=== PATIENT | male | born 1960 | race African-American/Black ===

== ENCOUNTER 2018-07-10 03:39 | Inpatient (IN) ==
[2018-07-10 04:31] LABS: Baso % (Auto) 0.5 % (0.0-2.0); Eos % (Auto) 0.5 % (0.0-4.0); Hematocrit 26.6 % (39.0-51.0); Hemoglobin 8.8 gm/dL (13.0-17.0); Lymph % (Auto) 40.3 % (9.0-44.0); Mean Corpuscular Hemoglobin 28.5 pg (27.0-34.0); Mean Corpuscular Volume 86.3 fL (80.0-100.0); Mean Platelet Volume 8.7 fL (7.0-11.0); Mono # (Auto) 0.3 th/mm3 (0.0-0.9); Mono % (Auto) 5.4 % (0.0-8.0); Neut # (Auto) 2.7 th/mm3 (1.8-7.7); Neut % (Auto) 53.3 % (16.0-70.0); Platelet Count 125 th/mm3 (150-450); Red Blood Count 3.08 mil/mm3 (4.50-5.90); Red Cell Distribution Width 13.9 % (11.6-17.2); White Blood Count 5.1 th/mm3 (4.0-11.0)
--- NOTE | 2018-07-10 04:50 | XR ---
EXAM DATE: 07/10/2018 4:43 AM EST AGE/SEX: 58 years / Male INDICATIONS: Syncope. CLINICAL DATA: This is the patient's initial encounter. Patient reports that signs and symptoms have been present for 1 day and indicates a pain score of 0/10. MEDICAL/SURGICAL HISTORY: None. Appendectomy. COMPARISON: [facility] [place], 04/03/2016. . FINDINGS: A single AP view of the chest demonstrates the lungs to be symmetrically aerated without evidence of mass, infiltrate or effusion. The cardiomediastinal contours are unremarkable. Osseous structures a re intact. CONCLUSION: No acute cardiopulmonary disease demonstrated. Electronically signed by: Napoleon Jorge MD Board Certified Radiologist 07/10/2018 4:49 AM EST
[2018-07-10 04:59] LABS: Anion Gap 8 meq/L (5-15); Blood Urea Nitrogen 40 mg/dL (7-18); Carbon Dioxide 26.9 meq/L (21.0-32.0); Chloride 107 meq/L (98-107); Glomerular Filtration Rate 72 mL/min (>89); Glucose,Random 187 mg/dL (74-106); Potassium 4.1 meq/L (3.5-5.1); Sodium 142 meq/L (136-145)
[2018-07-10] MEDS ORDERED: Sodium Chlor 0.9% Inj 500 ML IV.SIG SCH (05:00)
--- NOTE | 2018-07-10 05:34 | CT ---
EXAM DATE: 07/10/2018 5:10 AM EST AGE/SEX: 58 years / Male INDICATIONS: Syncopal episode. CLINICAL DATA: This is the patient's initial encounter. Patient reports that signs and symptoms have been present for 1 day and indicates a pain score of 0/10. MEDICAL/SURGICAL HISTORY: None. Appendectomy. RADIATION DOSE: 56.35 CTDI (mGy) COMPARISON: No prior exams available for comparison. TECHNIQUE: CT of the head without contrast. Using automated exposure control and adjustment of the mA and/or kV according to patient size, radiation dose was kept as low as reasonably achievable to ob tain optimal diagnostic quality images. DICOM format image data is available electronically for revi ew and comparison. FINDINGS: Cerebrum: The ventricles are normal for age. No evidence of midline shift, mass lesion, hemorrhage or acute infarction. No extraaxial fluid collections are seen. Posterior Fossa: The cerebellum and brainstem are intact. The 4th ventricle is midline. The cerebe llopontine angle is unremarkable. Extracranial: The visualized portion of the orbits is intact. Skull: The calvaria is intact. No evidence of skull fracture. CONCLUSION: Negative noncontrast head CT. . Electronically signed by: Napoleon Jorge MD Board Certified Radiologist 07/10/2018 5:32 AM EST
--- NOTE | 2018-07-10 06:35 | ED ---
HPI General Chief Complaint: Syncope Stated Complaint: Medical Time Seen by Provider: 07/10/18 04:07 History of Present Illness HPI narrative: Patient is a 58-year-old male presents to the emergency department with an episode of syncope. Patient states that he had an episode of vomiting earlier in the evening and then had a syncopal episode which he does not recall however his says she heard a thud on the ground downstairs and went running and found him on the floor. He has no injury from the fall but does report coffee-ground emesis earlier. No history of drinking alcohol or illicit drug use. No liver disease or known coagulopathy. Patient has had no priors. Related Data Home Medications Medication Instructions Recorded Confirmed amoxicillin-pot clavulanate 1 tab PO Q12H 07/10/18 07/10/18 Allergies Allergy/AdvReac Type Severity Reaction Status Date / Time No Known Allergies Allergy Verified 07/10/18 09:34 Review of Systems ROS: all other systems reviewed are negative [facility] Social History Social History Substance History: No History of Abuse Second Hand Smoke Exposure: No Smoking Status: Never smoker How Often Do You Have a Drink Containing Alcohol: Never Recent Travel in [facility] within the Last 8 Weeks: No Recent Out of Country Travel within the Last 8 Weeks: No Immunization History Tetanus Immunization: >5 Years Exam Narrative Exam Narrative: GENERAL: 58-year-old male in no distress SKIN: Focused skin assessment warm/dry. HEAD: Atraumatic. Normocephalic. EYES: Pupils equal and round. No scleral icterus. No injection or drainage. CARDIOVASCULAR: Regular rate and rhythm. No murmur appreciated. RESPIRATORY: No accessory muscle use. Clear to auscultation. Breath sounds equal bilaterally. GASTROINTESTINAL: Abdomen soft, non-tender, nondistended. Hepatic and splenic margins not palpable. MUSCULOSKELETAL: No obvious deformities. No clubbing. No cyanosis. No edema. NEUROLOGICAL: Awake and alert. No obvious cranial nerve deficits. Motor grossly within normal limits. Normal speech. Course Initial Documented Vital Signs Temperature 98.0 F 07/10/18 03:44 Pulse Rate 85 07/10/18 03:44 Respiratory Rate 20 07/10/18 03:44 Blood Pressure 97/53 L 07/10/18 03:44 Pulse Oximetry 97 07/10/18 03:44 Last Documented Vital Signs Temperature 98.4 F 12/29/18 16:00 Pulse Rate 88 07/10/18 16:00 Respiratory Rate 17 07/10/18 16:00 Blood Pressure 107/68 07/10/18 16:00 Pulse Oximetry 100 07/10/18 15:40 Medical Decision Making MDM Narrative Medical decision making narrative: Patient was seen and evaluated in the emergency department. He had another episode of coffee-ground emesis. In the near syncope resulting after the event. His hemoglobin and hematocrit found to be low. He is typed and screened for potential blood transfusion and admitted for further evaluation and treatment. Medical Screen Exam Complete: Yes Emergency Medical Condition: Yes Lab Data Result diagrams: 07/10/18 17:18 07/10/18 04:23 Lab Results 07/10/18 07/10/18 07/10/18 Range/Units 04:23 04:23 04:23 WBC 5.1 (4.0-11.0) th/mm3 RBC 3.08 L (4.50-5.90) mil/mm3 Hgb 8.8 L (13.0-17.0) gm/dL Hct 26.6 L (39.0-51.0) % MCV 86.3 (80.0-100.0) fL MCH 28.5 (27.0-34.0) pg MCHC 33.0 (32.0-36.0) % RDW 13.9 (11.6-17.2) % Plt Count 125 L (150-450) th/mm3 MPV 8.7 (7.0-11.0) fL Neut % (Auto) 53.3 (16.0-70.0) % Lymph % (Auto) 40.3 (9.0-44.0) % [place] % (Auto) 5.4 (0.0-8.0) % Eos % (Auto) 0.5 (0.0-4.0) % Baso % (Auto) 0.5 (0.0-2.0) % Neut # (Auto) 2.7 (1.8-7.7) th/mm3 Lymph # (Auto) 2.0 (1.0-4.8) th/mm3 [place] # (Auto) 0.3 (0.0-0.9) th/mm3 Eos # (Auto) 0.0 (0.0-0.4) th/mm3 Baso # (Auto) 0.0 (0.0-0.2) th/mm3 WBC Differential . Differential Comment Auto diff final PT (9.8-11.6) sec INR Ratio APTT (23.4-31.7) sec D-Dimer Quant (PE/DVT) 0.19 (0.00-0.50) mg/L FEU Sodium 142 (136-145) meq/L Potassium 4.1 (3.5-5.1) meq/L Chloride 107 (98-107) meq/L Carbon Dioxide 26.9 (21.0-32.0) meq/L Anion Gap 8 (5-15) meq/L BUN 40 H (7-18) mg/dL Creatinine 1.25 (0.60-1.30) mg/dL Estimated GFR 72 L (>89) mL/min POC Glucose (68-110) mg/dl Random Glucose 187 H (74-106) mg/dL Lactic Acid (0.4-2.0) mmol/L Calcium 8.0 L (8.5-10.1) mg/dL Phosphorus (2.5-4.9) mg/dL Magnesium (1.5-2.5) mg/dL Total Creatine Kinase (39-308) U/L CK-MB (CK-2) (0.5-3.6) ng/mL CK-MB (CK-2) % (0.0-4.0) % Troponin I Less than 0.02 L (0.02-0.05) ng/mL Amylase (25-115) U/L Lipase (73-393) U/L Nasal Screen MRSA (PCR) (Negative) Blood Type Blood Type Recheck Antibody Screen 07/10/18 07/10/18 07/10/18 Range/Units 04:46 09:44 09:50 WBC (4.0-11.0) th/mm3 RBC (4.50-5.90) mil/mm3 Hgb (13.0-17.0) gm/dL Hct (39.0-51.0) % MCV (80.0-100.0) fL MCH (27.0-34.0) pg MCHC (32.0-36.0) % RDW (11.6-17.2) % Plt Count (150-450) th/mm3 MPV (7.0-11.0) fL Neut % (Auto) (16.0-70.0) % Lymph % (Auto) (9.0-44.0) % [place] % (Auto) (0.0-8.0) % Eos % (Auto) (0.0-4.0) % Baso % (Auto) (0.0-2.0) % Neut # (Auto) (1.8-7.7) th/mm3 Lymph # (Auto) (1.0-4.8) th/mm3 [place] # (Auto) (0.0-0.9) th/mm3 Eos # (Auto) (0.0-0.4) th/mm3 Baso # (Auto) (0.0-0.2) th/mm3 WBC Differential Differential Comment PT 12.8 H (9.8-11.6) sec INR 1.3 Ratio APTT 22.2 L (23.4-31.7) sec D-Dimer Quant (PE/DVT) (0.00-0.50) mg/L FEU Sodium (136-145) meq/L Potassium (3.5-5.1) meq/L Chloride (98-107) meq/L Carbon Dioxide (21.0-32.0) meq/L Anion Gap (5-15) meq/L BUN (7-18) mg/dL Creatinine (0.60-1.30) mg/dL Estimated GFR (>89) mL/min POC Glucose 112 H (68-110) mg/dl Random Glucose (74-106) mg/dL Lactic Acid (0.4-2.0) mmol/L Calcium (8.5-10.1) mg/dL Phosphorus (2.5-4.9) mg/dL Magnesium (1.5-2.5) mg/dL Total Creatine Kinase (39-308) U/L CK-MB (CK-2) (0.5-3.6) ng/mL CK-MB (CK-2) % (0.0-4.0) % Troponin I (0.02-0.05) ng/mL Amylase (25-115) U/L Lipase (73-393) U/L Nasal Screen MRSA (PCR) (Negative) Blood Type B Positive Blood Type Recheck Required Antibody Screen Negative 07/10/18 07/10/18 07/10/18 Range/Units 11:00 12:39 12:39 WBC (4.0-11.0) th/mm3 RBC (4.50-5.90) mil/mm3 Hgb 9.4 L (13.0-17.0) gm/dL Hct 27.4 L (39.0-51.0) % MCV (80.0-100.0) fL MCH (27.0-34.0) pg MCHC (32.0-36.0) % RDW (11.6-17.2) % Plt Count (150-450) th/mm3 MPV (7.0-11.0) fL Neut % (Auto) (16.0-70.0) % Lymph % (Auto) (9.0-44.0) % [place] % (Auto) (0.0-8.0) % Eos % (Auto) (0.0-4.0) % Baso % (Auto) (0.0-2.0) % Neut # (Auto) (1.8-7.7) th/mm3 Lymph # (Auto) (1.0-4.8) th/mm3 [place] # (Auto) (0.0-0.9) th/mm3 Eos # (Auto) (0.0-0.4) th/mm3 Baso # (Auto) (0.0-0.2) th/mm3 WBC Differential Differential Comment PT (9.8-11.6) sec INR Ratio APTT (23.4-31.7) sec D-Dimer Quant (PE/DVT) (0.00-0.50) mg/L FEU Sodium (136-145) meq/L Potassium (3.5-5.1) meq/L Chloride (98-107) meq/L Carbon Dioxide (21.0-32.0) meq/L Anion Gap (5-15) meq/L BUN (7-18) mg/dL Creatinine (0.60-1.30) mg/dL Estimated GFR (>89) mL/min POC Glucose (68-110) mg/dl Random Glucose (74-106) mg/dL Lactic Acid 1.7 (0.4-2.0) mmol/L Calcium (8.5-10.1) mg/dL Phosphorus (2.5-4.9) mg/dL Magnesium (1.5-2.5) mg/dL Total Creatine Kinase (39-308) U/L CK-MB (CK-2) (0.5-3.6) ng/mL CK-MB (CK-2) % (0.0-4.0) % Troponin I (0.02-0.05) ng/mL Amylase (25-115) U/L Lipase (73-393) U/L Nasal Screen MRSA (PCR) Not detected (Negative) Blood Type Blood Type Recheck Antibody Screen 07/10/18 07/10/18 07/10/18 Range/Units 12:39 12:39 17:18 WBC (4.0-11.0) th/mm3 RBC (4.50-5.90) mil/mm3 Hgb 9.1 L (13.0-17.0) gm/dL Hct 26.2 L (39.0-51.0) % MCV (80.0-100.0) fL MCH (27.0-34.0) pg MCHC (32.0-36.0) % RDW (11.6-17.2) % Plt Count (150-450) th/mm3 MPV (7.0-11.0) fL Neut % (Auto) (16.0-70.0) % Lymph % (Auto) (9.0-44.0) % [place] % (Auto) (0.0-8.0) % Eos % (Auto) (0.0-4.0) % Baso % (Auto) (0.0-2.0) % Neut # (Auto) (1.8-7.7) th/mm3 Lymph # (Auto) (1.0-4.8) th/mm3 [place] # (Auto) (0.0-0.9) th/mm3 Eos # (Auto) (0.0-0.4) th/mm3 Baso # (Auto) (0.0-0.2) th/mm3 WBC Differential Differential Comment PT (9.8-11.6) sec INR Ratio APTT (23.4-31.7) sec D-Dimer Quant (PE/DVT) (0.00-0.50) mg/L FEU Sodium (136-145) meq/L Potassium (3.5-5.1) meq/L Chloride (98-107) meq/L Carbon Dioxide (21.0-32.0) meq/L Anion Gap (5-15) meq/L BUN (7-18) mg/dL Creatinine (0.60-1.30) mg/dL Estimated GFR (>89) mL/min POC Glucose (68-110) mg/dl Random Glucose (74-106) mg/dL Lactic Acid (0.4-2.0) mmol/L Calcium (8.5-10.1) mg/dL Phosphorus 2.6 (2.5-4.9) mg/dL Magnesium 1.8 (1.5-2.5) mg/dL Total Creatine Kinase 363 H (39-308) U/L CK-MB (CK-2) 4.8 H (0.5-3.6) ng/mL CK-MB (CK-2) % 1.3 (0.0-4.0) % Troponin I (0.02-0.05) ng/mL Amylase 59 (25-115) U/L Lipase 75 (73-393) U/L Nasal Screen MRSA (PCR) (Negative) Blood Type Blood Type Recheck Antibody Screen 07/10/18 Range/Units 17:49 WBC (4.0-11.0) th/mm3 RBC (4.50-5.90) mil/mm3 Hgb (13.0-17.0) gm/dL Hct (39.0-51.0) % MCV (80.0-100.0) fL MCH (27.0-34.0) pg MCHC (32.0-36.0) % RDW (11.6-17.2) % Plt Count (150-450) th/mm3 MPV (7.0-11.0) fL Neut % (Auto) (16.0-70.0) % Lymph % (Auto) (9.0-44.0) % [place] % (Auto) (0.0-8.0) % Eos % (Auto) (0.0-4.0) % Baso % (Auto) (0.0-2.0) % Neut # (Auto) (1.8-7.7) th/mm3 Lymph # (Auto) (1.0-4.8) th/mm3 [place] # (Auto) (0.0-0.9) th/mm3 Eos # (Auto) (0.0-0.4) th/mm3 Baso # (Auto) (0.0-0.2) th/mm3 WBC Differential Differential Comment PT (9.8-11.6) sec INR Ratio APTT (23.4-31.7) sec D-Dimer Quant (PE/DVT) (0.00-0.50) mg/L FEU Sodium (136-145) meq/L Potassium (3.5-5.1) meq/L Chloride (98-107) meq/L Carbon Dioxide (21.0-32.0) meq/L Anion Gap (5-15) meq/L BUN (7-18) mg/dL Creatinine (0.60-1.30) mg/dL Estimated GFR (>89) mL/min POC Glucose 84 (68-110) mg/dl Random Glucose (74-106) mg/dL Lactic Acid (0.4-2.0) mmol/L Calcium (8.5-10.1) mg/dL Phosphorus (2.5-4.9) mg/dL Magnesium (1.5-2.5) mg/dL Total Creatine Kinase (39-308) U/L CK-MB (CK-2) (0.5-3.6) ng/mL CK-MB (CK-2) % (0.0-4.0) % Troponin I (0.02-0.05) ng/mL Amylase (25-115) U/L Lipase (73-393) U/L Nasal Screen MRSA (PCR) (Negative) Blood Type Blood Type Recheck Antibody Screen Imaging Data Radiologist's impression: Chest X-Ray 07/10/18 04:19 CONCLUSION: No acute cardiopulmonary disease demonstrated. Head CT 07/10/18 04:19 CONCLUSION: Negative noncontrast head CT. . Abdomen X-Ray 07/10/18 09:13 CONCLUSION: Nonspecific gas pattern No evidence of pathologic distention, free air or mass effect. Discharge Plan Discharge Disposition Patient Disposition: ED Admit(ED Internal Use Only) Discharge Condition Condition: Stable Discharge Order Discharge Orders: ED Use Only Admit Order (Routine); Ordered 07/10/18 Ordered By: Lizbeth Stafford Discharge Details Diagnosis: Acute upper GI bleed Physicians Team ED Provider: Lizbeth Stafford Primary Care Provider: [facility] Attending Provider: Sharad Pedroza Other Providers: Juan Goncalves ; Dino Watkins Status ED Status: Left Department Discharge Information Discharge Date/Time: 07/10/18 10:06
[2018-07-10] MEDS ORDERED: Acetaminophen 325 MG Tablet PO PRN (09:06)
[2018-07-10] MEDS ORDERED: Potassium Phosphate Inj 30 MMOL in Sodium Chlor 0.9% Inj 250 ML IV.SIG PRN (09:22)
[2018-07-10] MEDS ORDERED: Potassium Chlor 40 mEq Premix 40 MEQ/100 ML PIGGYBACK IV.SIG PRN ×2 (09:22)
[2018-07-10] MEDS ORDERED: Potassium Chlor 20 mEq Premix 20 MEQ/100 ML PIGGYBACK IV.SIG PRN ×2 (09:22)
[2018-07-10] MEDS ORDERED: Potassium Chloride 25 MEQ Effervescent Tablet PO PRN (09:22)
[2018-07-10] MEDS ORDERED: Sodium Phosphate Inj 30 MMOL in Sodium Chlor 0.9% Inj 250 ML IV.SIG PRN (09:22)
[2018-07-10] MEDS ORDERED: Magnesium Oxide 400 MG Tablet PO PRN (09:22)
[2018-07-10] MEDS ORDERED: Potassium Phosphate 500 MG Soluble Tablet PO PRN ×2 (09:22)
[2018-07-10] MEDS ORDERED: Magnesium Sulfate Inj 4 GM in Sodium Chlor 0.9% Inj 92 ML IV.SIG PRN (09:22)
[2018-07-10] MEDS ORDERED: Magnesium Sulfate Inj 2 GM in Sodium Chlor 0.9% Inj 96 ML IV.SIG PRN (09:22)
--- NOTE | 2018-07-10 09:22 | P.HPCC ---
History of Present Illness Service: Critical care medicine Primary Care Physician: Physician 's [facility] Chief Complaint: Nausea/vomiting with coffee-ground emesis History of Present Illness: This is a 58-year-old AA male. Admission 07/10/2018. Past medical history includes past ruptured appendix. He denies any aspirin use, NSAID use, oral steroid use or use of medication such as Celebrex or Vioxx patient presents to [facility] with a 3-4-day history of generalized abdominal discomfort. This morning, patient acute onset of nausea and vomiting with multiple episodes of coffee-ground emesis with some bright red blood in some episodes of hematochezia per patient and . Patient has syncopal event and was transported to [facility]. CT brain negative. Heme globin 8.8. Coags currently pending. Given his elevated 40. Patient started on pantoprazole drip and gastroneurology consult for possible intervention. Initial systolic blood pressure was in the 80s systolic currently 110. He received 1 L normal saline bolus. Multiple laboratory still pending we are estimate the patient. Patient is currently warm extremities and conversing normally. - Diagnosis (1) Normocytic anemia due to blood loss (2) Acute kidney injury (3) Acute upper GI bleed Inpatient Certification: I certify that the inpatient services were ordered in accordance with Medicare regulations governing the order. This includes certification that hospital inpatient services are reasonable and necessary and in the case of services not specified as inpatient-only under 42 CFR 419.22(n), that they are appropriately provided as inpatient services in accordance to with the 2-midnight benchmark under 43 CFR 412.3(e) Estimated Total Length of Stay (Days): 5 Plans for Post Hospital Care: Not yet determined Review of Systems Constitutional: Denies anorexia, Denies body ache(s), Denies chills Eyes: Denies blind spots, Denies blurry vision, Denies bulging eyes Ears, Nose, Mouth, and Throat: Denies abnormal hearing, Denies bleeding gums, Denies bad breath Cardiovascular: Denies chest pain, Denies shortness of breath Respiratory: Denies cough, Denies shortness of breath Gastrointestinal: Reports bloating, Reports bright, red blood in stools, Reports nausea, Reports vomiting, Reports vomiting blood, Denies difficulty swallowing, Denies incontinent of stools Genitourinary: Denies urinary hesitancy, Denies urinary incontinence Musculoskeletal: Denies abnormal walking, Denies back pain Skin/Breast: Denies acne, Denies wounds Neurologic: Denies abnormal hearing, Denies abnormal movements, Denies lack of coordination, Denies localized weakness Psychiatric: Denies anxiety, Denies confusion, Denies depression Endocrine: Denies cold intolerance, Denies excessive sweating Hematologic/Lymphatic: Denies easy bleeding, Denies easy bruising Allergic/Immunologic: Denies GI upset with certain foods PMFSH - History History Provided By: Financial Administrator / EMT - Medical History Medical History: Medical History (Last Updated 07/10/18 @ 09:17 by Sharad Pedroza MD) No pertinent past medical history - Surgical History Surgical History: Surgical History (Last Updated 07/10/18 @ 03:53 by Maico Mcallister) Hx of appendectomy - Family History Family History: Family History (Last Updated 07/10/18 @ 09:17 by Sharad Pedroza MD) Other Family history of diabetes mellitus in mother - Social History I have reviewed the patient's Social History: Yes - Tobacco History Second Hand Smoke Exposure: No Tobacco Use In Past 30 Days: No Smoking Status: Never smoker - Alcohol History How Often Do You Have a Drink Containing Alcohol: Never - Substance Use History Substance History: No History of Abuse - Travel History Recent Travel in the [place] Within the Last 8 Weeks: No Recent Travel Out of the Country Within the Last 8 Weeks: No - Immunization History Tetanus Immunization: >5 Years Medications and Allergies Active Medications: Active Medications Acetaminophen (Tylenol) 650 mg PO Q6H PRN PRN Reason: PAIN 1-10 AND/OR FEVER >101F Albuterol (Albuterol Neb (Radha)) 2.5 mg NEB Q2HR NEB PRN PRN Reason: SHORTNESS OF BREATH/WHEEZING Chlorhexidine Gluconate (Chlorhexidine 2% Cloth) 3 pack TOPICAL DAILY@0400 RADHA Stop: 07/16/18 03:59 Chlorhexidine Gluconate (Chlorhexidine 2% Cloth) 3 pack TOPICAL DAILY@0400 PRN PRN Reason: Extra cloth needed Stop: 07/16/18 03:59 Sodium Chloride (Ns Inj) 1,000 mls @ 84 mls/hr IV.CONT .[id number] RADHA Pantoprazole Sodium 80 mg/ (Sodium Chloride) 35 mls @ 420 mls/hr IV.SIG BOLUS ONE Stop: 07/10/18 09:13 Pantoprazole Sodium 80 mg/ (Sodium Chloride) 100 mls @ 10 mls/hr IV.CONT CONT RADHA Ondansetron HCl (Zofran Inj) 4 mg IV.PUSH Q6H PRN PRN Reason: NAUSEA OR VOMITING Sodium Chloride (Ns Flush) 2 ml IV.FLUSH BID RADHA Sodium Chloride (Ns Flush) 2 ml IV.FLUSH PRN PRN PRN Reason: FLUSH AFTER USING IV ACCESS Allergies Allergy/AdvReac Type Severity Reaction Status Date / Time No Known Allergies Allergy Cough Uncoded 07/10/18 03:58 Home Medications Medication Instructions Recorded Confirmed Type amoxicillin-pot clavulanate 1 tab PO Q12H 07/10/18 07/10/18 History Results - Labs CBC & Chem 7: 07/10/18 04:23 07/10/18 04:23 Labs: Short CBC 07/10/18 Range/Units 04:23 WBC 5.1 (4.0-11.0) th/mm3 Hgb 8.8 L (13.0-17.0) gm/dL Hct 26.6 L (39.0-51.0) % Plt Count 125 L (150-450) th/mm3 BMP 07/10/18 04:23 Sodium 142 Potassium 4.1 Chloride 107 Carbon Dioxide 26.9 BUN 40 H Creatinine 1.25 Calcium 8.0 L Cardiac Enzymes 07/10/18 Range/Units 04:23 Troponin I Less than 0.02 L (0.02-0.05) ng/mL - Imaging Impressions Chest X-Ray 07/10/18 04:19 CONCLUSION: No acute cardiopulmonary disease demonstrated. Head CT 07/10/18 04:19 CONCLUSION: Negative noncontrast head CT. . Exam Vital signs: Vital Signs 07/10/18 03:44 07/10/18 04:46 07/10/18 07:00 Temperature 98.0 F Pulse Rate 85 83 76 Respiratory Rate 20 17 Blood Pressure 97/53 L 85/54 L Pulse Oximetry 97 83 L 07/10/18 07:10 07/10/18 07:18 Temperature 98.2 F Pulse Rate 77 Respiratory Rate 15 Blood Pressure 103/55 L Pulse Oximetry 100 100 Intake & Output 07/09/18 07/10/18 07/10/18 18:59 06:59 18:59 Intake Total 500 / 500 Balance 500 / 500 Weight 84.368 kg Intake: IV 500 / 500 NS Inj 500 ML @ 1000 mls/hr IV. 500 / 500 SIG BOLUS RADHA Rx#:[id number] - Constitutional no acute distress - Routine HEENT Exam Head: Present: normocephalic, atraumatic Eye: Present: EOMI, PERRL ENT: Present: mucous membranes moist - Routine Neck Exam Present: supple, full ROM. Absent: JVD - Routine Chest/Breast/Axilla Exam Chest wall: Absent: tenderness Breast: Absent: tenderness Axillae: Absent: lymphadenopathy - Routine Respiratory Exam Present: CTA bilaterally. Absent: accessory muscle use - Routine Cardiovascular Exam Present: RRR, S1, S2. Absent: murmur - Routine Abdominal Exam Present: normoactive bowel sounds, tenderness, distended. Absent: guarding, rigid, mass - Routine Extremities Exam Absent: cyanosis, clubbing, edema - Routine Skin Exam Present: intact, dry, warm. Absent: cyanosis - Routine Neurological Exam Present: alert, oriented X3, CN II-XII intact. Absent: sensory deficit, motor deficit - Routine Psychiatric Exam Present: normal affect Septic Shock Reassessment Septic shock perfusion: reassessment completed Caprini VTE Risk Assessment Caprini VTE Risk Assessment: Moderate/High Risk (score >= 2) VTE Pharmacological Exception Reason: Hemorrhage Caprini Risk Assessment Model: Point Value = 1 Point Value = 2 Point Value = 3 Point Value = 5 Age 41-60 Minor surgery BMI > 25 kg/m2 Swollen legs Varicose veins or History of unexplained or recurrent spontaneous Oral contraceptives or hormone replacement Sepsis (< 1 month) Serious lung disease, including pneumonia (< 1 month) Abnormal pulmonary function Acute myocardial infarction Congestive heart failure (< 1 month) History of inflammatory bowel disease Medical patient at bed rest Age 61-74 Arthroscopic surgery Major open surgery (> 45 min) Laparoscopic surgery (> 45 min) Malignancy Confined to bed (> 72 hours) Immobilizing plaster cast Central venous access Age >= 75 History of VTE Family history of VTE Factor V Leiden Prothrombin 26808H Lupus anticoagulant Anticardiolipin antibodies Elevated serum homocysteine Heparin-induced thrombocytopenia Other congenital or acquired thrombophilia Stroke (< 1 month) Elective arthroplasty Hip, pelvis, or leg fracture Acute spinal cord injury (< 1 month) Prophylaxis Regimen: Total Risk Factor Score Risk Level Prophylaxis Regimen 0-1 Low Early ambulation 2 Moderate Order ONE of the following: *Sequential Compression Device (SCD) *Heparin 5000 units SQ BID 3-4 Higher Order ONE of the following medications: *Heparin 5000 units SQ TID *Enoxaparin/Lovenox 40 mg SQ daily (WT < 150 kg, CrCl > 30 mL/min) *Enoxaparin/Lovenox 30 mg SQ daily (WT < 150 kg, CrCl > 10-29 mL/min) *Enoxaparin/Lovenox 30 mg SQ BID (WT < 150 kg, CrCl > 30 mL/min) AND/OR *Sequential Compression Device (SCD) 5 or more Highest Order ONE of the following medications: *Heparin 5000 units SQ TID (Preferred with Epidurals) *Enoxaparin/Lovenox 40 mg SQ daily (WT < 150 kg, CrCl > 30 mL/min) *Enoxaparin/Lovenox 30 mg SQ daily (WT < 150 kg, CrCl > 10-29 mL/min) *Enoxaparin/Lovenox 30 mg SQ BID (WT < 150 kg, CrCl > 30 mL/min) AND *Sequential Compression Device (SCD) Assessment and Plan - Problem List (1) Normocytic anemia due to blood loss Code(s): D50.0 - Iron deficiency anemia secondary to blood loss (chronic) Status: Acute (2) Acute kidney injury Code(s): N17.9 - Acute kidney failure, unspecified Status: Acute (3) Acute upper GI bleed Code(s): K92.2 - Gastrointestinal hemorrhage, unspecified Status: Acute - Assessment and Plan Plan: Neuro/Psych: Acetaminophen 650 p.o. every 6 hours as needed pain/fever 1 through 10 CV: Acute hypotension secondary to acute GI bleed called Status post 1 L normal saline bolus in ED. Currently normal saline at 84 cc an hour. Check lactate Resp: Nasal cannula to maintain saturations greater than equal 92% Incentive spirometry while awake As needed albuterol aerosols every 2 hours as needed dyspnea GI: Likely upper GI bleed Currently on pantoprazole 80 mg IV was followed by 8 mg an hour GI consultation Serial hemoglobins every 6 hours with lactate pending Liver function tests, amylase, lipase, coags and abdominal x-ray currently pending N.p.o. status. : No indication for Turner catheter Endo: Hyperglycemia/acute Sliding scale insulin with Accu-Cheks every 6 hours to maintain euglycemia Renal: Acute kidney injury Creatinine currently 1.25. Monitor urine output Accurate I's and O's Recheck BMP in a.m. 30. Likely secondary to volume/hypoperfusion Heme: Normocytic anemia/acute blood loss Serial hemoglobins every 6 hours. Type and screen coags ID: Monitor for signs and symptomatology of infection FEN: Replace electrolytes as clinically indicated per ICU electrolyte protocol Currently on normal saline at 40 cc an hour MSK: Physical therapy to evaluate and treat Access -Utilize peripheral IV. Central line if indicated Prophylaxis -GI -pantoprazole drip -DVT -SCD/pharmacological prophylaxis contraindicated with active hemorrhage Level 2 admission
[2018-07-10] MEDS ORDERED: Dextrose 50% in Water 50 ML Vial IV.PUSH PRN (09:23)
[2018-07-10] MEDS ORDERED: Pantoprazole Inj 80 MG in Sodium Chlor 0.9% Inj 35 ML IV.SIG ONE (09:30)
[2018-07-10] MEDS: Sod Chloride 0.9% Inj 1,000 ML IV.CONT SCH ×2 (09:40→20:23)
--- NOTE | 2018-07-10 09:57 | XR ---
EXAM DATE: 07/10/2018 9:32 AM EST AGE/SEX: 58 years / Male INDICATIONS: Nausea and vomiting. Possible GI bleed. CLINICAL DATA: This is the patient's initial encounter. Patient reports that signs and symptoms have been present for 1 day and indicates a pain score of 0/10. MEDICAL/SURGICAL HISTORY: None. Appendectomy. COMPARISON: No prior exams available for comparison. FINDINGS: Nonspecific gas pattern is noted. There is air throughout the GI tract without evidence of pathologic distention. There is no evidence of free air or mass effect. Osseous structures are intact. CONCLUSION: Nonspecific gas pattern No evidence of pathologic distention, free air or mass effect. Electronically signed by: Mustapha Berg MD Board Certified Radiologist 07/10/2018 9:55 AM EST
[2018-07-10 10:51] LABS: Activated Partial Thrombo Time 22.2 sec (23.4-31.7); INR 1.3 Ratio; Prothrombin Time 12.8 sec (9.8-11.6)
[2018-07-10] MEDS: Pantoprazole Inj 80 MG in Sodium Chlor 0.9% Inj 100 ML IV.CONT SCH ×2 (11:36→22:35)
--- NOTE | 2018-07-10 12:06 | P.CONGI ---
History of Present Illness Consult date: 07/10/18 Consult reason: Coffee-ground emesis, upper GI bleed Chief complaint: Upper Gi bleed History of Present Illness: This is a well-nourished 58-year-old male who came into the hospital on 2017 with onset of abdominal pain approximately 3 days ago with epigastric tenderness to light touch. Approximately 02 30 this a.m. patient started having coffee-ground emesis at home uncontrolled and after coming to the hospital melena stools. Patient did note a change in the color of his stools approximately 3 days ago to dark and sticky. Patient also notes sore throat and treatment with amoxicillin approximately 2 weeks ago. Patient does have family history of colon cancer younger brother and patient has history of polyps. Last colonoscopy with Dr. Draek was July 2017. Patient states EGD many years ago no known history of gastric or esophageal ulcers. Patient denies any diarrhea or constipation, no dyspepsia or dysphasia, no recent NSAID use, takes no anticoagulation, no alcohol or drug use. Patient does note history of ruptured appendix in the early . Labs reviewed which show current hemoglobin 8.8, WBC count 5.1, platelet count 125, d-dimer 0.19, mild elevation in BUN 40 and normal creatinine. Patient does note some decreased appetite over the past 3 days. Gastroenterology was consulted to assist in his care. Patient is being monitored in the intensive care setting, borderline hypotension in the emergency room appears to be more stable. Last also notes some altered mental status after vomiting at home but recovered in 2-3 minutes. <Heidi Ortiz - Last Filed: 07/10/18 12:06> Review of Systems All other systems reviewed negative except as stated in HPI <Heidi Ortiz - Last Filed: 07/10/18 12:06> PMFSH - History History Provided By: Patient - Medical History Medical History: Medical History (Last Reviewed 07/10/18 @ 09:28 by Lou Borwn) No pertinent past medical history - Surgical History Surgical History: Surgical History (Last Reviewed 07/10/18 @ 09:28 by Lou Brown) Hx of appendectomy - Family History Family History: Family History (Last Reviewed 07/10/18 @ 09:28 by Lou Brown) Other Family history of diabetes mellitus in mother - Tobacco History Second Hand Smoke Exposure: No Tobacco Use In Past 30 Days: No Smoking Status: Never smoker - Alcohol History How Often Do You Have a Drink Containing Alcohol: Never - Substance Use History Substance History: No History of Abuse - Travel History Recent Travel in the [place] Within the Last 8 Weeks: No Recent Travel Out of the Country Within the Last 8 Weeks: No - Immunization History Tetanus Immunization: <5 Years Hx Influenza Vaccine This Season: Yes <Heidi Ortiz - Last Filed: 07/10/18 12:06> - Medical History Medical History: Medical History (Last Reviewed 07/10/18 @ 09:28 by Lou Brown) No pertinent past medical history - Surgical History Surgical History: Surgical History (Last Reviewed 07/10/18 @ 09:28 by Lou Brown) Hx of appendectomy - Family History Family History: Family History (Last Reviewed 07/10/18 @ 09:28 by Lou Brown) Other Family history of diabetes mellitus in mother <Juan Goncalves - Last Filed: 07/10/18 13:23> Medications and Allergies Active Medications: Active Medications Acetaminophen (Tylenol) 650 mg PO Q6H PRN PRN Reason: PAIN 1-10 AND/OR FEVER >101F Albuterol (Albuterol Neb (Prn)) 2.5 mg NEB Q2HR NEB PRN PRN Reason: SHORTNESS OF BREATH/WHEEZING Chlorhexidine Gluconate (Chlorhexidine 2% Cloth) 3 pack TOPICAL DAILY@0400 RADHA Stop: 07/16/18 03:59 Chlorhexidine Gluconate (Chlorhexidine 2% Cloth) 3 pack TOPICAL DAILY@0400 PRN PRN Reason: Extra cloth needed Stop: 07/16/18 03:59 Dextrose (D50w Vial) 50 ml IV.PUSH UNSCH PRN PRN Reason: PER HYPOGLYCEMIA PROTOCOL Glucagon (Glucagon Inj) 1 mg OTHER PRN PRN PRN Reason: for Hypoglycemia Protocol Sodium Chloride (Ns Inj) 1,000 mls @ 84 mls/hr IV.CONT .[id number] [facility] Last Admin: 07/10/18 09:40 Dose: 84 mls/hr Pantoprazole Sodium 80 mg/ (Sodium Chloride) 100 mls @ 10 mls/hr IV.CONT CONT [facility] Last Admin: 07/10/18 11:36 Dose: 10 mls/hr Magnesium Sulfate 4 gm/ Sodium (Chloride) 100 mls @ 50 mls/hr IV.SIG UNSCH PRN PRN Reason: For Magnesium 0.9 - 1.1 mg/dL Magnesium Sulfate 2 gm/ Sodium (Chloride) 100 mls @ 50 mls/hr IV.SIG UNSCH PRN PRN Reason: For Magnesium 1.2 - 1.6 mg/dL Potassium Chloride (Kcl 40 Meq Premix Inj) 40 meq in 100 mls @ 50 mls/hr IV.SIG Q2H PRN PRN Reason: For Potassium 2.8 - 3.2 mEq/L Potassium Chloride (Kcl 20 Meq Premix Inj) 20 meq in 100 mls @ 50 mls/hr IV.SIG Q2H PRN PRN Reason: For Potassium 3.3 - 3.5 mEq/L Potassium Chloride (Kcl 40 Meq Premix Inj) 40 meq in 100 mls @ 25 mls/hr IV.SIG UNSCH PRN PRN Reason: For Potassium 3.3 - 3.5 mEq/L Potassium Chloride (Kcl 20 Meq Premix Inj) 20 meq in 100 mls @ 50 mls/hr IV.SIG Q2H PRN PRN Reason: For Potassium 2.8 - 3.2 mEq/L Potassium Phosphate 30 mmol/ (Sodium Chloride) 260 mls @ 42 mls/hr IV.SIG UNSCH PRN PRN Reason: SEE LABEL COMMENTS Sodium Phosphate 30 mmol/ (Sodium Chloride) 260 mls @ 42 mls/hr IV.SIG UNSCH PRN PRN Reason: For Phosphorus < 2.5 mg/dL Insulin Aspart (Novolog Insulin Correctional Sugar Inj) 0 unit SQ Q6HR RADHA; Protocol Magnesium Oxide (Mag-Ox) 800 mg PO UNSCH PRN PRN Reason: For Magnesium 1.2 - 1.6 mg/dL Ondansetron HCl (Zofran Inj) 4 mg IV.PUSH Q6H PRN PRN Reason: NAUSEA OR VOMITING Potassium Bicarb/Potassium Chloride (K-Lyte Cl Eff) 50 meq PO UNSCH PRN PRN Reason: For Potassium 3.3 - 3.5 mEq/L Potassium Phosphate (K-Phos Original) 2,000 mg PO Q4H PRN PRN Reason: Phosphorus Less Than 2.5 mg/dL Potassium Phosphate (K-Phos Original) 2,000 mg PO UNSCH PRN PRN Reason: SEE LABEL COMMENTS Sodium Chloride (Ns Flush) 2 ml IV.FLUSH BID [facility] Sodium Chloride (Ns Flush) 2 ml IV.FLUSH PRN PRN PRN Reason: FLUSH AFTER USING IV ACCESS <Heidi Ortiz - Last Filed: 07/10/18 12:06> Active Medications: Active Medications Acetaminophen (Tylenol) 650 mg PO Q6H PRN PRN Reason: PAIN 1-10 AND/OR FEVER >101F Albuterol (Albuterol Neb (Prn)) 2.5 mg NEB Q2HR NEB PRN PRN Reason: SHORTNESS OF BREATH/WHEEZING Chlorhexidine Gluconate (Chlorhexidine 2% Cloth) 3 pack TOPICAL DAILY@0400 RADHA Stop: 07/16/18 03:59 Chlorhexidine Gluconate (Chlorhexidine 2% Cloth) 3 pack TOPICAL DAILY@0400 PRN PRN Reason: Extra cloth needed Stop: 07/16/18 03:59 Dextrose (D50w Vial) 50 ml IV.PUSH UNSCH PRN PRN Reason: PER HYPOGLYCEMIA PROTOCOL Glucagon (Glucagon Inj) 1 mg OTHER PRN PRN PRN Reason: for Hypoglycemia Protocol Sodium Chloride (Ns Inj) 1,000 mls @ 84 mls/hr IV.CONT .[id number] [facility] Last Admin: 07/10/18 09:40 Dose: 84 mls/hr Pantoprazole Sodium 80 mg/ (Sodium Chloride) 100 mls @ 10 mls/hr IV.CONT CONT [facility] Last Admin: 07/10/18 11:36 Dose: 10 mls/hr Magnesium Sulfate 4 gm/ Sodium (Chloride) 100 mls @ 50 mls/hr IV.SIG UNSCH PRN PRN Reason: For Magnesium 0.9 - 1.1 mg/dL Magnesium Sulfate 2 gm/ Sodium (Chloride) 100 mls @ 50 mls/hr IV.SIG UNSCH PRN PRN Reason: For Magnesium 1.2 - 1.6 mg/dL Potassium Chloride (Kcl 40 Meq Premix Inj) 40 meq in 100 mls @ 50 mls/hr IV.SIG Q2H PRN PRN Reason: For Potassium 2.8 - 3.2 mEq/L Potassium Chloride (Kcl 20 Meq Premix Inj) 20 meq in 100 mls @ 50 mls/hr IV.SIG Q2H PRN PRN Reason: For Potassium 3.3 - 3.5 mEq/L Potassium Chloride (Kcl 40 Meq Premix Inj) 40 meq in 100 mls @ 25 mls/hr IV.SIG UNSCH PRN PRN Reason: For Potassium 3.3 - 3.5 mEq/L Potassium Chloride (Kcl 20 Meq Premix Inj) 20 meq in 100 mls @ 50 mls/hr IV.SIG Q2H PRN PRN Reason: For Potassium 2.8 - 3.2 mEq/L Potassium Phosphate 30 mmol/ (Sodium Chloride) 260 mls @ 42 mls/hr IV.SIG UNSCH PRN PRN Reason: SEE LABEL COMMENTS Sodium Phosphate 30 mmol/ (Sodium Chloride) 260 mls @ 42 mls/hr IV.SIG UNSCH PRN PRN Reason: For Phosphorus < 2.5 mg/dL Insulin Aspart (Novolog Insulin Correctional Sugar Inj) 0 unit SQ Q6HR RADHA; Protocol Magnesium Oxide (Mag-Ox) 800 mg PO UNSCH PRN PRN Reason: For Magnesium 1.2 - 1.6 mg/dL Ondansetron HCl (Zofran Inj) 4 mg IV.PUSH Q6H PRN PRN Reason: NAUSEA OR VOMITING Potassium Bicarb/Potassium Chloride (K-Lyte Cl Eff) 50 meq PO UNSCH PRN PRN Reason: For Potassium 3.3 - 3.5 mEq/L Potassium Phosphate (K-Phos Original) 2,000 mg PO Q4H PRN PRN Reason: Phosphorus Less Than 2.5 mg/dL Potassium Phosphate (K-Phos Original) 2,000 mg PO UNSCH PRN PRN Reason: SEE LABEL COMMENTS Sodium Chloride (Ns Flush) 2 ml IV.FLUSH BID RADHA Sodium Chloride (Ns Flush) 2 ml IV.FLUSH PRN PRN PRN Reason: FLUSH AFTER USING IV ACCESS <Juan Goncalves - Last Filed: 07/10/18 13:23> Allergies Allergy/AdvReac Type Severity Reaction Status Date / Time No Known Allergies Allergy Verified 07/10/18 09:34 Home Medications Medication Instructions Recorded Confirmed Type amoxicillin-pot clavulanate 1 tab PO Q12H 07/10/18 07/10/18 History Exam Vital signs: Vital Signs 07/10/18 03:44 07/10/18 04:46 07/10/18 07:00 Temperature 98.0 F Pulse Rate 85 83 76 Respiratory Rate 20 17 Blood Pressure 97/53 L 85/54 L Pulse Oximetry 97 83 L 07/10/18 07:10 07/10/18 07:18 07/10/18 09:06 Temperature 98.2 F 97.8 F Pulse Rate 77 76 Respiratory Rate 15 17 Blood Pressure 103/55 L 107/65 Pulse Oximetry 100 100 100 Intake & Output 07/09/18 07/10/18 07/10/18 18:59 06:59 18:59 Intake Total 500 / 500 35 / 35 Balance 500 / 500 35 / 35 Weight 84.368 kg 81.9 kg Intake: IV 500 / 500 35 / 35 Protonix Inj 80 MG In NS Inj 35 35 / 35 ML @ 420 mls/hr IV.SIG BOLUS ONE Rx#:[id number] NS Inj 500 ML @ 1000 mls/hr IV. 500 / 500 SIG BOLUS RADHA Rx#:[id number] Other: Weight On Admission 81.9 kg - Constitutional moderate distress, average body habitus, disheveled - Routine HEENT Exam Head: Present: normocephalic, atraumatic ENT: Present: mucous membranes moist - Routine Neck Exam Present: supple - Routine Respiratory Exam Present: CTA bilaterally - Routine Cardiovascular Exam Present: RRR, S2 - Routine Abdominal Exam Present: soft, tenderness (Pinpoint epigastric/ gastric region, some guarding to soft touch) - Routine Extremities Exam Present: full ROM, pulses intact - Routine Skin Exam Present: intact, pallor (Mucous membranes) - Routine Neurological Exam Present: alert, normal speech <Diana,Heidi M - Last Filed: 07/10/18 12:06> Vital signs: Vital Signs 07/10/18 03:44 07/10/18 04:46 07/10/18 07:00 Temperature 98.0 F Pulse Rate 85 83 76 Respiratory Rate 20 17 Blood Pressure 97/53 L 85/54 L Pulse Oximetry 97 83 L 07/10/18 07:10 07/10/18 07:18 07/10/18 09:06 Temperature 98.2 F 97.8 F Pulse Rate 77 76 Respiratory Rate 15 17 Blood Pressure 103/55 L 107/65 Pulse Oximetry 100 100 100 Intake & Output 07/09/18 07/10/18 07/10/18 18:59 06:59 18:59 Intake Total 500 / 500 35 / 35 Balance 500 / 500 35 / 35 Weight 84.368 kg 81.9 kg Intake: IV 500 / 500 35 / 35 Protonix Inj 80 MG In NS Inj 35 35 / 35 ML @ 420 mls/hr IV.SIG BOLUS ONE Rx#:[id number] NS Inj 500 ML @ 1000 mls/hr IV. 500 / 500 SIG BOLUS RADHA Rx#:[id number] Other: Weight On Admission 81.9 kg <SachaNatividadguera A - Last Filed: 07/10/18 13:23> Results - Labs CBC & Chem 7: 07/10/18 04:23 07/10/18 04:23 Labs: Laboratory Results - last 24 hr 07/10/18 07/10/18 07/10/18 04:23 04:23 04:23 WBC 5.1 RBC 3.08 L Hgb 8.8 L Hct 26.6 L MCV 86.3 MCH 28.5 MCHC 33.0 RDW 13.9 Plt Count 125 L MPV 8.7 Neut % (Auto) 53.3 Lymph % (Auto) 40.3 [place] % (Auto) 5.4 Eos % (Auto) 0.5 Baso % (Auto) 0.5 Neut # (Auto) 2.7 Lymph # (Auto) 2.0 [place] # (Auto) 0.3 Eos # (Auto) 0.0 Baso # (Auto) 0.0 WBC Differential . Differential Comment Auto diff final PT INR APTT D-Dimer Quant (PE/DVT) 0.19 Sodium 142 Potassium 4.1 Chloride 107 Carbon Dioxide 26.9 Anion Gap 8 BUN 40 H Creatinine 1.25 Estimated GFR 72 L POC Glucose Random Glucose 187 H Calcium 8.0 L Troponin I Less than 0.02 L Blood Type Blood Type Recheck Antibody Screen 07/10/18 07/10/18 07/10/18 04:46 09:44 09:50 WBC RBC Hgb Hct MCV MCH MCHC RDW Plt Count MPV Neut % (Auto) Lymph % (Auto) [place] % (Auto) Eos % (Auto) Baso % (Auto) Neut # (Auto) Lymph # (Auto) [place] # (Auto) Eos # (Auto) Baso # (Auto) WBC Differential Differential Comment PT 12.8 H INR 1.3 APTT 22.2 L D-Dimer Quant (PE/DVT) Sodium Potassium Chloride Carbon Dioxide Anion Gap BUN Creatinine Estimated GFR POC Glucose 112 H Random Glucose Calcium Troponin I Blood Type B Positive Blood Type Recheck Required Antibody Screen Negative - Imaging Impressions Chest X-Ray 07/10/18 04:19 CONCLUSION: No acute cardiopulmonary disease demonstrated. Head CT 07/10/18 04:19 CONCLUSION: Negative noncontrast head CT. . Abdomen X-Ray 07/10/18 09:13 CONCLUSION: Nonspecific gas pattern No evidence of pathologic distention, free air or mass effect. <Heidi Ortiz - Last Filed: 07/10/18 12:06> - Labs CBC & Chem 7: 07/10/18 12:39 07/10/18 04:23 Labs: Laboratory Results - last 24 hr 07/10/18 07/10/18 07/10/18 04:23 04:23 04:23 WBC 5.1 RBC 3.08 L Hgb 8.8 L Hct 26.6 L MCV 86.3 MCH 28.5 MCHC 33.0 RDW 13.9 Plt Count 125 L MPV 8.7 Neut % (Auto) 53.3 Lymph % (Auto) 40.3 [place] % (Auto) 5.4 Eos % (Auto) 0.5 Baso % (Auto) 0.5 Neut # (Auto) 2.7 Lymph # (Auto) 2.0 [place] # (Auto) 0.3 Eos # (Auto) 0.0 Baso # (Auto) 0.0 WBC Differential . Differential Comment Auto diff final PT INR APTT D-Dimer Quant (PE/DVT) 0.19 Sodium 142 Potassium 4.1 Chloride 107 Carbon Dioxide 26.9 Anion Gap 8 BUN 40 H Creatinine 1.25 Estimated GFR 72 L POC Glucose Random Glucose 187 H Lactic Acid Calcium 8.0 L Troponin I Less than 0.02 L Amylase Lipase Blood Type Blood Type Recheck Antibody Screen 07/10/18 07/10/18 07/10/18 04:46 09:44 09:50 WBC RBC Hgb Hct MCV MCH MCHC RDW Plt Count MPV Neut % (Auto) Lymph % (Auto) [place] % (Auto) Eos % (Auto) Baso % (Auto) Neut # (Auto) Lymph # (Auto) [place] # (Auto) Eos # (Auto) Baso # (Auto) WBC Differential Differential Comment PT 12.8 H INR 1.3 APTT 22.2 L D-Dimer Quant (PE/DVT) Sodium Potassium Chloride Carbon Dioxide Anion Gap BUN Creatinine Estimated GFR POC Glucose 112 H Random Glucose Lactic Acid Calcium Troponin I Amylase Lipase Blood Type B Positive Blood Type Recheck Required Antibody Screen Negative 07/10/18 07/10/18 07/10/18 12:39 12:39 12:39 WBC RBC Hgb 9.4 L Hct 27.4 L MCV MCH MCHC RDW Plt Count MPV Neut % (Auto) Lymph % (Auto) [place] % (Auto) Eos % (Auto) Baso % (Auto) Neut # (Auto) Lymph # (Auto) [place] # (Auto) Eos # (Auto) Baso # (Auto) WBC Differential Differential Comment PT INR APTT D-Dimer Quant (PE/DVT) Sodium Potassium Chloride Carbon Dioxide Anion Gap BUN Creatinine Estimated GFR POC Glucose Random Glucose Lactic Acid 1.7 Calcium Troponin I Amylase 59 Lipase 75 Blood Type Blood Type Recheck Antibody Screen - Imaging Impressions Chest X-Ray 07/10/18 04:19 CONCLUSION: No acute cardiopulmonary disease demonstrated. Head CT 07/10/18 04:19 CONCLUSION: Negative noncontrast head CT. . Abdomen X-Ray 07/10/18 09:13 CONCLUSION: Nonspecific gas pattern No evidence of pathologic distention, free air or mass effect. <Juan Goncalves - Last Filed: 07/10/18 13:23> Assessment and Plan - Plan abdominal pain approximately 3 days ago with epigastric tenderness to light touch. Approximately 02 30 this a.m. patient started having coffee-ground emesis at home uncontrolled and after coming to the hospital melena stools. Patient did note a change in the color of his stools approximately 3 days ago to dark and sticky. Patient also notes sore throat and treatment with amoxicillin approximately 2 weeks ago. Patient does have family history of colon cancer younger brother and patient has history of polyps. Last colonoscopy with Dr. Drake was July 2017. Patient states EGD many years ago no known history of gastric or esophageal ulcers. Patient denies any diarrhea or constipation, no dyspepsia or dysphasia, no recent NSAID use, takes no anticoagulation, no alcohol or drug use. Patient does note history of ruptured appendix in the early 1980s. Labs reviewed which show current hemoglobin 8.8, WBC count 5.1, platelet count 125, d-dimer 0.19, mild elevation in BUN 40 and normal creatinine. Patient does note some decreased appetite over the past 3 days. Gastroenterology was consulted to assist in his care. Patient is being monitored in the intensive care setting, hypotension in the emergency room appears to be more stable. Abdominal x-rays unremarkable Upper GI bleed, could be related to esophageal or gastric ulcer, epigastric/ gastric pinpoint tenderness with some guarding Coffee-ground emesis, nausea and vomiting probably related to #1 Melena stools, symptoms 3-4 days Decreased appetite, this could be related to upper GI bleed and ulcers History of polyps, last colonoscopy with Dr. Drake, July 2017 Altered mental status after vomiting which could have been related to hypotension or vagal stimulation Symptomatic anemia Positive family history colon cancer younger brother Plan N.p.o. for now Consent for EGD this p.m., rule out continued acute GI bleeding versus ulcers/ erosions versus inflammation Monitor labs with special attention to hemoglobin and transfuse as needed Protonix drip Zofran as needed Supportive care currently in room, EGD procedure explained to and Supportive care Further recommendations to follow Patient was seen per myself and Dr. Goncalves, note was written on his behalf <Heidi Ortiz - Last Filed: 07/10/18 12:06> - Attending Attestation As above, will continue supportive care. EGD today, further recommendations to follow. Thank you for the consult. <Juan Goncalves - Last Filed: 07/10/18 13:23>
[2018-07-10 13:12] LABS: Hematocrit 27.4 % (39.0-51.0); Hemoglobin 9.4 gm/dL (13.0-17.0)
[2018-07-10 13:22] LABS: Amylase 59 U/L (25-115); Lipase 75 U/L (73-393)
[2018-07-10 13:29] LABS: Magnesium 1.8 mg/dL (1.5-2.5); Phosphorus 2.6 mg/dL (2.5-4.9)
[2018-07-10 13:48] LABS: CKMB Percent 1.3 % (0.0-4.0); Creatine Kinase MB 4.8 ng/mL (0.5-3.6)
--- NOTE | 2018-07-10 14:55 | GIPROC ---
[facility] [address] [facility]. [facility], [address] EGD PROCEDURE REPORT EXAM DATE: 07/10/2018 PATIENT NAME: Luis Carlos Gilbert MR #: [id number] BIRTHDATE: 1960 ATTENDING: Juan Goncalves MD ORDER #: [id number] HOLLOW HANDLE BENCH WORKER: Barbara Welsh and Hieu Abad STATUS: inpatient INDICATIONS: The patient is a 58 yr old male here for an EGD due to melena PROCEDURE PERFORMED: EGD w/ biopsy EGD w/ control of bleeding MEDICATIONS: Per Anesthesia and None. TOPICAL ANESTHETIC: none CONSENT: The patient understands the risks and benefits of the procedure and understands that these risks include, but are not limited to: sedation, allergic reaction, infection, perforation and/or bleeding. Alternative means of evaluation and treatment include, among others: physical exam, x-rays, and/or surgical intervention. The patient elects to proceed with this endoscopic procedure. medical equipment was checked for proper function. Hand hygiene and appropriate measures for infection prevention was taken. After the risks, benefits and alternatives of the procedure were thoroughly explained, Informed consent was verified, confirmed and timeout was successfully executed by the treatment team. The patient was anesthetized with topical anesthesia and the Pentax [id number] endoscope was introduced through the mouth and advanced to the second portion of the duodenum. Retroflexion was performed and was normal The gastroscope was then slowly withdrawn and removed. ESOPHAGUS: There was LA Class B esophagitis noted. STOMACH: There was acute moderate and erosive gastritis in the gastric antrum. Multiple biopsies were performed using cold forceps. Sample sent for histology. DUODENUM: A large non-bleeding non-bleeding, round and deep ulcer with a visible vessel was found in the duodenal bulb. Complete hemostasis was achieved by placing two Cook instinct hemoclips on the bleeding site(s). ADVERSE EVENTS: There were no complications. IMPRESSIONS: 1. There was LA Class B esophagitis noted 2. There was acute gastritis in the gastric antrum; multiple biopsies were performed 3. Large non-bleeding ulcer was found in the duodenal bulb; Complete hemostasis was achieved by placing two hemoclips on the bleeding site(s) 4. Retroflexion was performed and was normal RECOMMENDATIONS: 1. Await biopsy results. Biopsy results will not be ready for 7-10 days. If you don't hear from us in two weeks, call our office for biopsy results. 2. Continue PPI 3. Begin feeding tomorrow PATIENT CONDITION: stable DISPOSITION: Observation REPEAT EXAM: NONE Juan Goncalves MD eSigned: Juan Goncalves MD 07/10/2018 2:55 PM cc: PATIENT NAME: Luis Carlos Gilbert MR#: [id number]
[2018-07-10 17:43] LABS: Hematocrit 26.2 % (39.0-51.0); Hemoglobin 9.1 gm/dL (13.0-17.0)
--- NOTE | 2018-07-10 17:53 | ECG ---
Date Performed: 07/10/2018 Time Performed: 03:50:00 PTAGE: 58 years EKG: Sinus rhythm NONSPECIFIC ST & T-WAVE ABNORMALITY BORDERLINE ECG NO PREVIOUS TRACING DOCTOR: Lauro Alva Interpretating Date/Time 07/10/2018 17:51:16
[2018-07-10] MEDS: Insulin NovoLOG Aspart Correctional Sugar Inj SQ SCH ×3 (17:59→23:13)
[2018-07-11 03:51] LABS: Baso % (Auto) 0.5 % (0.0-2.0); Eos % (Auto) 0.3 % (0.0-4.0); Hematocrit 23.9 % (39.0-51.0); Lymph # (Auto) 1.5 th/mm3 (1.0-4.8); Lymph % (Auto) 28.8 % (9.0-44.0); Mean Corpuscular HGB Conc 33.6 % (32.0-36.0); Mean Corpuscular Hemoglobin 28.6 pg (27.0-34.0); Mono # (Auto) 0.3 th/mm3 (0.0-0.9); Neut # (Auto) 3.4 th/mm3 (1.8-7.7); Neut % (Auto) 65.4 % (16.0-70.0); Platelet Count 115 th/mm3 (150-450); Red Blood Count 2.81 mil/mm3 (4.50-5.90); Red Cell Distribution Width 14.2 % (11.6-17.2); White Blood Count 5.2 th/mm3 (4.0-11.0)
[2018-07-11 04:00] LABS: Activated Partial Thrombo Time 21.9 sec (23.4-31.7); INR 1.3 Ratio
[2018-07-11] MEDS ORDERED: Chlorhexidine Gluconate 2% 1 Pack (2 Cloths) TOPICAL PRN (04:00)
[2018-07-11] MEDS ORDERED: Chlorhexidine Gluconate 2% 1 Pack (2 Cloths) TOPICAL SCH (04:00)
[2018-07-11 04:09] LABS: Alanine Aminotransferase 12 U/L (12-78); Albumin 2.7 g/dL (3.4-5.0); Anion Gap 4 meq/L (5-15); Aspartate Aminotransferase 23 U/L (15-37); Blood Urea Nitrogen 19 mg/dL (7-18); Calcium 7.8 mg/dL (8.5-10.1); Carbon Dioxide 30.6 meq/L (21.0-32.0); Chloride 109 meq/L (98-107); Glomerular Filtration Rate 77 mL/min (>89); Glucose,Random 110 mg/dL (74-106); Magnesium 1.9 mg/dL (1.5-2.5); Sodium 144 meq/L (136-145)
[2018-07-11 04:12] LABS: Alkaline Phosphatase 43 U/L (45-117); Total Protein 6.1 g/dL (6.4-8.2)
[2018-07-11] MEDS: Insulin NovoLOG Aspart Correctional Sugar Inj SQ SCH (05:10)
[2018-07-11] MEDS: Pantoprazole Inj 80 MG in Sodium Chlor 0.9% Inj 100 ML IV.CONT SCH (06:03)
[2018-07-11] MEDS: Sod Chloride 0.9% Inj 1,000 ML IV.CONT SCH (08:20)
--- NOTE | 2018-07-11 14:07 | P.PN ---
Subjective Interval history: tolerated po well no complains of pain no nausea or vomiting Physical Exam Vital signs: Vital Signs 07/10/18 14:57 07/10/18 15:15 07/10/18 15:30 Temperature 97.8 F Pulse Rate 104 H 100 H 101 H Respiratory Rate 17 17 19 Blood Pressure 102/60 107/71 108/74 Pulse Oximetry 100 100 100 07/10/18 15:40 07/10/18 16:00 07/10/18 16:33 Temperature 98.4 F Pulse Rate 88 94 H Respiratory Rate 17 34 H Blood Pressure 107/68 Pulse Oximetry 100 100 07/10/18 16:42 07/10/18 17:00 07/10/18 18:00 Temperature Pulse Rate 79 80 90 Respiratory Rate 17 18 20 Blood Pressure 107/68 114/71 114/64 Pulse Oximetry 100 100 100 07/10/18 19:00 07/10/18 20:00 07/10/18 21:00 Temperature 99 F Pulse Rate 91 H 88 92 H Respiratory Rate 21 18 19 Blood Pressure 111/75 111/65 110/58 L Pulse Oximetry 100 99 99 07/10/18 21:18 07/10/18 22:00 07/10/18 23:00 Temperature Pulse Rate 92 H 80 Respiratory Rate 16 19 Blood Pressure 109/61 111/66 Pulse Oximetry 100 94 L 100 07/11/18 00:00 07/11/18 01:00 07/11/18 02:00 Temperature 98.8 F Pulse Rate 79 74 79 Respiratory Rate 16 18 26 H Blood Pressure 109/64 98/54 L 104/60 Pulse Oximetry 100 99 100 07/11/18 03:00 07/11/18 04:00 07/11/18 06:00 Temperature 98.1 F Pulse Rate 79 73 69 Respiratory Rate 16 17 Blood Pressure 111/60 107/67 Pulse Oximetry 99 100 07/11/18 07:00 07/11/18 07:01 07/11/18 08:00 Temperature 98.6 F Pulse Rate 90 96 H 72 Respiratory Rate 24 21 20 Blood Pressure 113/78 108/58 L Pulse Oximetry 100 100 100 07/11/18 08:38 07/11/18 09:00 07/11/18 10:00 Temperature Pulse Rate 81 75 Respiratory Rate 32 H Blood Pressure 112/64 Pulse Oximetry 100 100 07/11/18 12:00 07/11/18 13:00 Temperature 98.4 F Pulse Rate 74 78 Respiratory Rate 19 12 Blood Pressure 104/68 103/62 Pulse Oximetry 100 100 Intake & Output 07/10/18 07/11/18 07/11/18 18:59 06:59 18:59 Intake Total 665 / 665 1920 / 1920 1000 / 1000 Output Total 1300 / 1300 Balance 665 / 665 620 / 620 1000 / 1000 Weight 81.9 kg 81.5 kg Intake: IV 35 / 35 1200 / 1200 1000 / 1000 Protonix Inj 80 MG In NS Inj 200 / 200 100 ML @ 10 mls/hr IV.CONT CONT FOR[facility]LY [facility], [facility]–1983 Rx#:[id number] NS Inj 1,000 ML @ 84 mls/hr IV. 1000 / 1000 1000 / 1000 CONT .[id number] FORMERLY [facility], 1928–1983 Rx#:[id number] Protonix Inj 80 MG In NS Inj 35 35 / 35 ML @ 420 mls/hr IV.SIG BOLUS ONE Rx#:[id number] Oral 480 / 480 720 / 720 Anesthesia Amount 150 / 150 Output: Urine 1300 / 1300 Other: # Voids 3 Date of Last Bowel Movement 07/10/18 07/10/18 07/10/18 Weight On Admission 81.9 kg Narrative: awaek and alert, oriented x 3 anicteric neck supplelungs- no rales regular rhythm abdomen soft, nontender good bowel sounds extremities no edema neuro exam- non focal Results - Labs CBC & Chem 7: 07/11/18 15:44 07/11/18 03:40 Laboratory Results - last 24 hr 07/10/18 07/10/18 07/10/18 11:00 17:18 17:49 WBC RBC Hgb 9.1 L Hct 26.2 L MCV MCH MCHC RDW Plt Count MPV Neut % (Auto) Lymph % (Auto) [place] % (Auto) Eos % (Auto) Baso % (Auto) Neut # (Auto) Lymph # (Auto) [place] # (Auto) Eos # (Auto) Baso # (Auto) WBC Differential Differential Comment PT INR APTT Sodium Potassium Chloride Carbon Dioxide Anion Gap BUN Creatinine Estimated GFR POC Glucose 84 Random Glucose Lactic Acid Calcium Phosphorus Magnesium Total Bilirubin AST ALT Alkaline Phosphatase Ammonia Total Protein Albumin Nasal Screen MRSA (PCR) Not detected 07/10/18 07/11/18 07/11/18 23:06 03:40 03:40 WBC 5.2 RBC 2.81 L Hgb 8.0 L Hct 23.9 L MCV 85.0 MCH 28.6 MCHC 33.6 RDW 14.2 Plt Count 115 L MPV 8.0 Neut % (Auto) 65.4 Lymph % (Auto) 28.8 [place] % (Auto) 5.0 Eos % (Auto) 0.3 Baso % (Auto) 0.5 Neut # (Auto) 3.4 Lymph # (Auto) 1.5 [place] # (Auto) 0.3 Eos # (Auto) 0.0 Baso # (Auto) 0.0 WBC Differential . Differential Comment Auto diff final PT 13.0 H INR 1.3 APTT 21.9 L Sodium Potassium Chloride Carbon Dioxide Anion Gap BUN Creatinine Estimated GFR POC Glucose 110 Random Glucose Lactic Acid Calcium Phosphorus Magnesium Total Bilirubin AST ALT Alkaline Phosphatase Ammonia Total Protein Albumin Nasal Screen MRSA (PCR) 07/11/18 07/11/18 07/11/18 03:40 03:40 03:40 WBC RBC Hgb Hct MCV MCH MCHC RDW Plt Count MPV Neut % (Auto) Lymph % (Auto) [place] % (Auto) Eos % (Auto) Baso % (Auto) Neut # (Auto) Lymph # (Auto) [place] # (Auto) Eos # (Auto) Baso # (Auto) WBC Differential Differential Comment PT INR APTT Sodium 144 Potassium 4.0 Chloride 109 H Carbon Dioxide 30.6 Anion Gap 4 L BUN 19 H Creatinine 1.17 Estimated GFR 77 L POC Glucose Random Glucose 110 H Lactic Acid 0.8 Calcium 7.8 L Phosphorus 3.0 Magnesium 1.9 Total Bilirubin 0.3 AST 23 ALT 12 Alkaline Phosphatase 43 L Ammonia 24 Total Protein 6.1 L Albumin 2.7 L Nasal Screen MRSA (PCR) 07/11/18 12:19 WBC RBC Hgb Hct MCV MCH MCHC RDW Plt Count MPV Neut % (Auto) Lymph % (Auto) [place] % (Auto) Eos % (Auto) Baso % (Auto) Neut # (Auto) Lymph # (Auto) [place] # (Auto) Eos # (Auto) Baso # (Auto) WBC Differential Differential Comment PT INR APTT Sodium Potassium Chloride Carbon Dioxide Anion Gap BUN Creatinine Estimated GFR POC Glucose 95 Random Glucose Lactic Acid Calcium Phosphorus Magnesium Total Bilirubin AST ALT Alkaline Phosphatase Ammonia Total Protein Albumin Nasal Screen MRSA (PCR) - Imaging 07/10- EGD 1. There was LA Class B esophagitis noted 2. There was acute gastritis in the gastric antrum; multiple biopsies were performed 3. Large non-bleeding ulcer was found in the duodenal bulb; Complete hemostasis was achieved by placing two hemoclips on the bleeding site(s) 4. Retroflexion was performed and was normal RECOMMENDATIONS: 1. Await biopsy results. Biopsy results will not be ready for 7-10 days. If you don't hear from us in two weeks, call our office for biopsy results. 2. Continue PPI Assessment and Plan - Plan Acute hypotension secondary to acute GI bleed called H and H - this am 8.0 - can be from dilution- was getting IVF - up and ambulate and monitor - concerns that this is lower and at admission level of 8.8 had dizziness - recheck H and H now upper GI bleed S/P EGD- esophatitis, gastritis, duodenal ulcer - change to po PPI - states no NSAIds use- advise on no nsaids, no alcohol Hyperglycemia/acute - good readings Acute kidney injury- resolved - improved- non oliguric up and ambulated with patient no dizziness d/w and patient and daughter- will get stat CBC now- if stable DC home told them kiney and liver functions are good repeat H and H stable, patient up and ambulating OP ff up with PCP/VA- with CBC in 1 weelk OP ff up GI in 2 weeks Diet as tolerated. advised on reflux measures Protnix 40 mg daily -
[2018-07-11 16:30] LABS: Baso % (Auto) 0.5 % (0.0-2.0); Eos % (Auto) 0.7 % (0.0-4.0); Hematocrit 25.4 % (39.0-51.0); Hemoglobin 8.7 gm/dL (13.0-17.0); Lymph # (Auto) 1.6 th/mm3 (1.0-4.8); Lymph % (Auto) 38.6 % (9.0-44.0); Mean Corpuscular HGB Conc 34.2 % (32.0-36.0); Mean Corpuscular Hemoglobin 29.5 pg (27.0-34.0); Mean Corpuscular Volume 86.2 fL (80.0-100.0); Mean Platelet Volume 8.8 fL (7.0-11.0); Mono # (Auto) 0.3 th/mm3 (0.0-0.9); Mono % (Auto) 6.8 % (0.0-8.0); Neut # (Auto) 2.1 th/mm3 (1.8-7.7); Neut % (Auto) 53.4 % (16.0-70.0); Platelet Count 130 th/mm3 (150-450); Red Blood Count 2.95 mil/mm3 (4.50-5.90)
== END 2018-07-11 19:00 | disposition home or self-care (01) | DRG 378 ==
LOC: NEPC 03:39 → NEDA 07:01 → HIMC 10:06
PROVIDERS: ADMIT Internal Medicine; ATTEND Internal Medicine
PROC: PANENDO (2018-07-10 14:35)
CPT/HCPCS: 70450; 71010; 71045; 74000; 74018; 80048; 80053; 82140; 82150; 82550; 82552; 82948; 82962; 83605; 83690; 83735; 84100; 84484; 85014; 85018; 85025; 85379; 85610; 85730; 86850; 86900; 86901; 87641; 88305; 88312; 90761; 90774; 90784; 93005; 94150; 96361; 96374; 97161; 99285; C8952; C9113; J2405; J7030; J7040